=== PATIENT | female | born 1990 | race Hispanic/Latino ===

== ENCOUNTER 2021-10-08 12:52 | Emergency (ER) | payer MEDICAID, OTHER ==
[2021-10-08] MEDS ORDERED: Acetaminophen 325 MG TAB ONE (15:51)
[2021-10-09 07:59] LABS: SARS-CoV-2 PCR by NAA Not Detected (NotDetected)
== END 2021-10-08 17:17 | disposition home or self-care (01) ==
LOC: CSHERS 12:52
DX: J06.9 Acute upper respiratory infection, unspecified (principal); Z20.822 Contact with and (suspected) exposure to COVID-19; Z86.16 Personal history of COVID-19
CPT/HCPCS: 87804; 99283; U0003; U0005

== ENCOUNTER 2021-11-04 11:46 | Day surgery (SDC) | payer OTHER ==
[2021-11-04] MEDS ORDERED: hydrALAZINE 20 MG/ML VIAL SLOW IVP PRN (13:33)
== END 2021-11-04 13:58 | disposition home or self-care (01) ==
LOC: CSHLD/OP 11:46
PROVIDERS: ATTEND Obstetrics & Gynecology
DX: O26.852 Spotting complicating pregnancy, second trimester (principal); O34.211 Maternal care for low transverse scar from previous cesarean delivery; Z3A.25 25 weeks gestation of pregnancy; Z79.899 Other long term (current) drug therapy
CPT/HCPCS: 99283

== ENCOUNTER 2023-08-22 12:57 | Emergency (ER) | payer OTHER, SELFPAY ==
[2023-08-22 13:49] LABS: #Basophils 0.1 10x3/uL (0.0-0.2); #Eosinphils 0.1 10x3/uL (0.0-0.5); #Monocytes 0.9 10x3/uL (0.0-1.1); #Neutrophils 8.5 10x3/uL (1.5-8.4); %Basophils 0.4 % (0.0-2.0); %Eosinophils 0.6 % (0.0-6.0); %Lymphocytes 17.9 % (18.0-47.0); %Monocytes 7.7 % (0.0-10.0); %Neutrophils 73.1 % (40.0-75.0); Hematocrit 35.5 % (34.9-44.5); Hemoglobin 11.3 g/dL (12.0-15.5); Mean Corpuscular HGB CONC 31.8 g/dL (32.0-36.0); Mean Corpuscular Hemoglobin 23.9 pg (27.0-33.0); Mean Corpuscular Volume 75.1 fl (81.6-98.3); Mean Platelet Volume 10.8 fl (7.4-10.4); Platelet Count 397 10x3/uL (150-450); RBC Distribution Width 16.2 % (11.5-14.5); Red Blood Cell (RBC) Count 4.73 10x6/uL (3.90-5.03); White Blood Cell (WBC) Count 11.6 10x3/uL (3.5-10.5)
[2023-08-22 14:15] LABS: ALT (SGPT) 26 U/L (8-55); AST (SGOT) 12 U/L (5-34); Albumin 4.1 g/dL (3.5-5.0); Alkaline Phosphatase 70 U/L (40-110); Anion Gap 12 mmol/L (10-20); BUN (Urea Nitrogen) 12 mg/dL (7.0-18.7); Bilirubin, Total 0.4 mg/dL (0.2-1.2); Calc. Creatinine Clearance 0 mL/min (70-130); Calcium 9.1 mg/dL (7.8-10.44); Carbon Dioxide 24 mmol/L (22-29); Chloride 103 mmol/L (98-107); Estimated GFR 104; Globulin 3.9 g/dL (2.4-3.5); Glucose 134 mg/dL (70-105); Potassium 3.3 mmol/L (3.5-5.1); Sodium 136 mmol/L (136-145)
[2023-08-22 14:23] LABS: Bilirubin Neg (Negative); Blood, Urine 10 (Negative); Clarity Clear (Clear); Glucose, Urine (Dipstick) Normal (Negative); Ketone, Urine 5 mg/dL (Negative); Leukocyte 25 (Negative); Nitrite Negative (Negative); Protein, Urine (Dipstick) 15 mg/dl (Neg-Trace); Specific Gravity, Urine 1.015 (1.005-1.030); Urobilinogen Normal mg/dL (Less than 2)
[2023-08-22 14:33] LABS: Pregnancy Test - Urine (BHCG) Negative (Negative); Pregu Control Background? CLEAR/WHITE (CLR/WHITE); Pregu Control Bar Appear? YES (CONTROL BAR); Specific Gravity 1.015 (1.002-1.036)
[2023-08-22 14:45] LABS: Bacteria/HPF Rare-Few HPF (None Seen); CAUTI Indications for Culture Pelvic or flank pain; RBC/HPF 0-3 HPF (0-3); WBC/HPF 0-3 HPF (0-3)
[2023-08-22 14:46] LABS: Mucous/LPF Rare LPF (<2+); Urine Culture Reflex No No
[2023-08-22 15:03] LABS: SARS-CoV-2 NAA Rapid Test Not Detected (NotDetected)
[2023-08-22] MEDS ORDERED: Ketorolac Tromethamine 30 MG/ML VIAL ONE (15:39)
[2023-08-22] MEDS ORDERED: Ondansetron PF 4 MG/2 ML Vial ONE (15:39)
[2023-08-22] MEDS ORDERED: Acetaminophen 500 MG TAB ONE (15:39)
== END 2023-08-22 17:45 | disposition home or self-care (01) ==
LOC: CSHERS 12:57
DX: B34.9 Viral infection, unspecified (principal); R73.9 Hyperglycemia, unspecified; Z20.822 Contact with and (suspected) exposure to COVID-19
CPT/HCPCS: 36415; 80053; 81001; 81025; 83605; 83690; 85025; 96361; 96374; 96375; J1885; J2405

== ENCOUNTER 2025-10-19 03:00 | Day surgery (SDC) | payer OTHER ==
[2025-10-19 03:26] VITALS: BMI 38.7
[2025-10-19] MEDS ORDERED: hydrALAZINE 20 MG/ML VIAL SLOW IVP PRN (03:27)
[2025-10-19 03:43] LABS: Glucose, Urine (Dipstick) Normal (Negative); Leukocyte Negative (Negative); Protein, Urine (Dipstick) Negative (Neg-Trace); Specific Gravity, Urine 1.005 (1.005-1.030)
[2025-10-19 03:52] LABS: Bacteria/HPF None Seen HPF (None Seen); CAUTI Indications for Culture Pregnancy; RBC/HPF None Seen HPF (0-3); WBC/HPF None Seen HPF (0-3)
[2025-10-19 03:53] LABS: Urine Culture Reflex Yes Yes
[2025-10-19 03:58] LABS: Protein, Urine Random Quant Less than 10 mg/dL (1-14)
[2025-10-19 04:09] LABS: #Basophils 0.04 10x3/uL (0.0-0.2); #Eosinophils 0.09 10x3/uL (0.0-0.5); #Monocytes 0.67 10x3/uL (0.0-1.1); #Neutrophils 9.24 10x3/uL (1.5-8.4); %Basophils 0.3 % (0.0-2.0); %Eosinophils 0.7 % (0.0-6.0); %Lymphocytes 16.4 % (18.0-47.0); %Monocytes 5.5 % (0.0-10.0); %Neutrophils 76.5 % (40.0-75.0); Hematocrit 28.3 % (34.9-44.5); Hemoglobin 8.8 g/dL (12.0-15.5); Mean Corpuscular Hemoglobin 22.3 pg (27.0-33.0); Mean Corpuscular Volume 71.8 fL (81.6-98.3); Platelet Count 406 10x3/uL (150-450); Red Blood Cell (RBC) Count 3.94 10x6/uL (3.90-5.03); White Blood Cell (WBC) Count 12.10 10x3/uL (3.5-10.5)
[2025-10-19 04:22] LABS: ALT (SGPT) Less than 7 U/L (Less than 34); AST (SGOT) 10 U/L (11-34); Albumin 2.7 g/dL (3.1-4.5); Alkaline Phosphatase 174 U/L (40-110); Anion Gap 13 mmol/L (10-20); BUN (Urea Nitrogen) 8 mg/dL (7.0-18.7); Bilirubin, Total 0.1 mg/dL (0.3-1.2); Calc. Creatinine Clearance 199 mL/min (70-130); Calcium 8.8 mg/dL (7.8-10.44); Carbon Dioxide 20 mmol/L (22-29); Chloride 108 mmol/L (98-107); Globulin 3.9 g/dL (2.4-3.5); Glucose 115 mg/dL (70-105); Potassium 3.7 mmol/L (3.5-5.1); Sodium 137 mmol/L (136-145)
[2025-10-19 06:10] LABS: Troponin I Less than 0.010 ng/mL (< 0.028)
== END 2025-10-19 06:20 | disposition home or self-care (01) ==
LOC: CSHLD/OP 03:00
PROVIDERS: ATTEND Obstetrics & Gynecology
DX: O10.913 Unspecified pre-existing hypertension complicating pregnancy, third trimester (principal); O47.1 False labor at or after 37 completed weeks of gestation; O99.013 Anemia complicating pregnancy, third trimester; O34.211 Maternal care for low transverse scar from previous cesarean delivery; Z67.40 Type O blood, Rh positive; Z3A.37 37 weeks gestation of pregnancy
CPT/HCPCS: 36415; 80053; 81001; 82570; 84156; 84484; 85025; 87086; 93005; 93010

== ENCOUNTER 2025-10-20 05:24 | Inpatient (IN) | payer OTHER ==
[2025-10-20 06:09] VITALS: BMI 38.4
[2025-10-20] MEDS ORDERED: hydrALAZINE 20 MG/ML VIAL SLOW IVP PRN ×3 (06:10→07:58)
[2025-10-20] MEDS ORDERED: Carboprost 250 MCG/ML AMP IM PRN (06:15)
[2025-10-20] MEDS ORDERED: Tranexamic Acid 1,000 MG/10 ML VIAL IVP PRN (06:15)
[2025-10-20] MEDS ORDERED: Azithromycin 500 MG in Sodium Chloride 0.9% 250 ML 250 ML IVPB SCH (06:15)
[2025-10-20] MEDS ORDERED: Famotidine/PF 20 mg/2ml Vial SLOW IVP PRN (06:15)
[2025-10-20] MEDS ORDERED: Ondansetron PF 4 MG/2 ML Vial IVP PRN ×3 (06:15→07:58)
[2025-10-20] MEDS ORDERED: Methylergonovine 0.2 MG/ML VIAL IM PRN (06:15)
[2025-10-20] MEDS ORDERED: Bicitra 30 ML UDCUP PO PRN (06:15)
[2025-10-20] MEDS ORDERED: Oxytocin 30 units/NS 500 ML 500 ML IV SCH ×2 (06:15→08:00)
[2025-10-20] MEDS ORDERED: Diphenoxylate HCl/Atropine Tablet PO PRN (06:15)
[2025-10-20 06:38] LABS: Hematocrit 29.6 % (34.9-44.5); Hemoglobin 9.1 g/dL (12.0-15.5); Mean Corpuscular Hemoglobin 21.8 pg (27.0-33.0); Mean Corpuscular Volume 70.8 fL (81.6-98.3); Platelet Count 384 10x3/uL (150-450); Red Blood Cell (RBC) Count 4.18 10x6/uL (3.90-5.03); White Blood Cell (WBC) Count 10.79 10x3/uL (3.5-10.5)
[2025-10-20 07:13] LABS: Hep B Surf Ag - L&D Non-Reactive S/CO (NonReactive)
[2025-10-20 07:14] LABS: Syphilis Antibody Index 0.05 S/CO (<1.00 Non-Reactive)
[2025-10-20] MEDS ORDERED: diphenhydrAMINE 50 MG/ML VIAL IVP PRN (07:26)
[2025-10-20] MEDS ORDERED: HYDROmorphone 0.5 MG/0.5 ML SYRINGE SLOW IVP PRN (07:26)
[2025-10-20] MEDS ORDERED: Ketorolac Tromethamine 30 MG (1 mL) VIAL IVP PRN (07:26)
[2025-10-20] MEDS ORDERED: Communication Order-Pharmacy FS SCH (07:30)
[2025-10-20] MEDS: Oxytocin 10 UNITS/ML VIAL ONE (10:16)
[2025-10-20] MEDS: Azithromycin 500 MG VIAL ONE (10:17)
[2025-10-20] MEDS: Ondansetron PF 4 MG/2 ML Vial ONE (10:17)
[2025-10-20] MEDS: Methylergonovine 0.2 MG TAB PO SCH (10:17)
[2025-10-20] MEDS: Dexamethasone 10 MG/ML VIAL ONE (10:17)
[2025-10-20] MEDS: PHENYLEPHRINE-NS 100 MCG/ML 10 ML SYRINGE ONE (10:17)
[2025-10-20] MEDS: NIFEdipine XL 30 MG ER.TAB PO SCH (12:40)
[2025-10-20] MEDS: Ketorolac Tromethamine 30 MG (1 mL) VIAL IVP PRN (20:11)
[2025-10-20] MEDS: Sertraline 100 MG TAB PO SCH (20:12)
[2025-10-20] MEDS: Simethicone Chewable 80 MG TAB PO PRN (23:52)
[2025-10-20] MEDS: diphenhydrAMINE 25 MG CAP PO PRN (23:52)
[2025-10-21] MEDS: HYDROcodone/Acetaminophen 5/325 mg Tablet PO PRN (05:01)
[2025-10-21 05:27] LABS: Hematocrit 22.4 % (34.9-44.5); Hemoglobin 7.0 g/dL (12.0-15.5); Mean Corpuscular Hemoglobin 22.3 pg (27.0-33.0); Mean Corpuscular Volume 71.3 fL (81.6-98.3); Platelet Count 328 10x3/uL (150-450); Red Blood Cell (RBC) Count 3.14 10x6/uL (3.90-5.03); White Blood Cell (WBC) Count 13.70 10x3/uL (3.5-10.5)
[2025-10-21] MEDS: Ferrous Sulfate 325 MG TAB PO SCH ×2 (08:54→10:21)
[2025-10-22 07:56] VITALS: BP 131/76; TEMP 98
[2025-10-22] MEDS: Pantoprazole 40 MG DR.TAB PO SCH (10:15)
[2025-10-22] MEDS ORDERED: Sertraline 100 MG TAB PO SCH (21:00)
[2025-10-25] MEDS ORDERED: Ibuprofen 800 MG TAB PO SCH (22:00)
== END 2025-10-22 12:00 | disposition home or self-care (01) | DRG 787 ==
LOC: CSHLD/OP 05:24 → CSHLD 06:56 → CSHPP 10:09
PROVIDERS: ADMIT Obstetrics & Gynecology; ATTEND Obstetrics & Gynecology
PROC: 10D00Z1 Extraction of Products of Conception, Low, Open Approach (ICD-10-PCS; principal; 2025-10-20)
PROC: 4A1HXCZ Monitoring of Products of Conception, Cardiac Rate, External Approach (ICD-10-PCS; 2025-10-20)
DX: O42.92 Full-term premature rupture of membranes, unspecified as to length of time between rupture and onset of labor (principal); O10.92 Unspecified pre-existing hypertension complicating childbirth; O99.214 Obesity complicating childbirth; O99.344 Other mental disorders complicating childbirth; O34.211 Maternal care for low transverse scar from previous cesarean delivery; F41.9 Anxiety disorder, unspecified; F32.A Depression, unspecified; Z79.899 Other long term (current) drug therapy; Z3A.37 37 weeks gestation of pregnancy; Z79.82 Long term (current) use of aspirin; Z98.890 Other specified postprocedural states
CPT/HCPCS: 36415; 51702; 85027; 86780; 86850; 86900; 86901; 87340; 93005; 93010; 99285; J0456; J1100; J1885; J2274; J2405; J2590; J7050